=== PATIENT | female | born 1970 | race Caucasian/White ===

== ENCOUNTER 2018-08-27 22:02 | Emergency (ER) | payer MEDICAID, OTHER ==
[~2018-08-27] VITALS: Wt 59.9 kg
[~2018-08-27 22:02] MED LIST: CIPR500T4 PO; HYDR-3498 PO; METF-849 PO
[2018-08-28] MEDS ORDERED: CIPR500T4 PO (00:51)
[2018-08-28] MEDS ORDERED: ACYC800T5 PO (00:51)
[2018-08-28 01:03] VITALS: BP 132/70; PULSE 85; RESP 18
--- NOTE | 2018-08-28 02:23 | ERD ---
ER Documentation Chief Complaint Chief Complaint DYSURIA, LOWER BACK PAIN X'S 5 DAYS HPI 48-year-old female presenting with dysuria x5 days. Patient also has irritation in the vaginal region and states it is itchy and also painful. She has some lesions that she is never seen before. Has not use any medications. Denies other medical problems. NKDA. Surgical history denies. Social history denies ROS All systems reviewed and are negative except as per history of present illness. Medications Home Meds Active Scripts Ciprofloxacin Hcl* (Ciprofloxacin Hcl*) 500 Mg Tablet, 500 MG PO BID for 7 Days, TAB Prov:JOSE ANTONIO WEIR PA-C 08/28/18 Acyclovir* (Zovirax*) 800 Mg Tablet, 800 MG PO 5 TIMES DAILY for 7 Days, TAB Prov:JOSE ANTONIO WEIR PA-C 08/28/18 Ciprofloxacin Hcl* (Ciprofloxacin Hcl*) 500 Mg Tablet, 500 MG PO BID for 7 Days, TAB Prov:BECKY HAILE 10/06/15 Hydrocodone Bit-Acetaminophen* (Quitman*) 5-325 Mg Tab, 1 TAB PO Q6 PRN for PAIN, #20 TAB Prov:BECKY HAILE 10/06/15 Metformin* (Glucophage*) 500 Mg Tab, 500 MG PO BID, #60 TAB Prov:LAZARABECKY ARANGO C 10/06/15 Allergies Allergies: Coded Allergies: No Known Allergy (Unverified , 10/06/15) PMhx/Soc History of Surgery: No Anesthesia Reaction: No Hx Neurological Disorder: No Hx Respiratory Disorders: No Hx Cardiac Disorders: No Hx Psychiatric Problems: No Hx Miscellaneous Medical Probl: No Hx Alcohol Use: No Hx Substance Use: No Hx Tobacco Use: No Smoking Status: Never smoker FmHx Family History: No diabetes, No coronary disease, No other Physical Exam Vitals Vital Signs Date Temp Pulse Resp B/P (MAP) Pulse Ox O2 O2 Flow FiO2 Time Delivery Rate 08/28/18 99.8 85 18 132/70 98 Room Air 01:03 (90) 08/27/18 98.8 93 18 163/68 99 22:19 (99) Physical Exam GENERAL: The patient is well-appearing, well-nourished, in no acute distress HEENT: Atraumatic. Conjunctivae are pink. Pupils equal, round, and reactive to light. There is no scleral icterus. Tympanic membranes clear bilaterally. Oropharynx clear. CHEST: Clear to auscultation bilaterally. There are no rales, wheezes or rhonchi. HEART: Regular rate and rhythm. No murmurs, clicks, rubs or gallops. . ABDOMEN:Soft, nontender and nondistended. Good bowel sounds. No rebound or guarding. No gross peritonitis. No gross organomegaly or masses. : Open sores noted to the labia. No vesicles. No pustules. Results 24 hrs Laboratory Tests Test 08/28/18 00:40 08/28/18 00:41 POC Beta HCG, Qualitative NEGATIVE Bedside Urine pH (LAB) 5.5 Bedside Urine Protein (LAB) 2+ Bedside Urine Glucose (UA) 0.1% Bedside Urine Ketones (LAB) Negative Bedside Urine Blood 2+ Bedside Urine Nitrite (LAB) Negative Bedside Urine Leukocyte Esterase (L 3+ Procedures/MDM MDM: 48-year-old female presenting with dysuria. Patient will be treated with antibiotics. Patient's exam was concerning for possible vaginal herpetic infections I will treat with antivirals. I have low suspicion for yeast infection. Patient is discharged with strict ER precautions and told to follow- up with primary care within 1 to 2 days for close evaluation. Patient is told if symptoms change or worsen to return immediately to the ER. All questions answered at discharge Departure Diagnosis: Primary Impression: Herpes Additional Impression: Dysuria Condition: Stable Patient Instructions: Dysuria, Herpes Genitalis, Hsv: Type Ii Referrals: [facility] YOU HAVE RECEIVED A MEDICAL SCREENING EXAM AND THE RESULTS INDICATE THAT YOU DO NOT HAVE A CONDITION THAT REQUIRES URGENT TREATMENT IN THE EMERGENCY DEPARTMENT. FURTHER EVALUATION AND TREATMENT OF YOUR CONDITION CAN WAIT UNTIL YOU ARE SEEN IN YOUR DOCTORS OFFICE WITHIN THE NEXT 1-2 DAYS. IT IS YOUR RESPONSIBILITY TO MAKE AN APPOINTMENT FOR FOLOW-UP CARE. IF YOU HAVE A PRIMARY DOCTOR --you should call your primary doctor and schedule an appointment IF YOU DO NOT HAVE A PRIMARY DOCTOR YOU CAN CALL OUR PHYSICIAN REFERRAL HOTLINE AT IF YOU CAN NOT AFFORD TO SEE A PHYSICIAN YOU CAN CHOSE FROM THE FOLLOWING [facility] [id number] [facility]. [facility] [address] [facility] [address] [facility]. [facility] [address] [facility]. [facility] [address] [facility]. [facility] [address] Additional Instructions: FOLLOW UP WITH YOUR PRIMARY CARE PHYSICIAN TOMORROW.Return to this facility if you are not improving as expected. JOSE ANTONIO WEIR PA-C Aug 28, 2018 02:23
== END 2018-08-28 01:04 | disposition home or self-care (01) ==
LOC: FTE 22:02
DX: A60.09 Herpesviral infection of other urogenital tract (principal); R10.2 Pelvic and perineal pain; Z79.84 Long term (current) use of oral hypoglycemic drugs
CPT/HCPCS: 81003; 81025; Z7502; 99284